=== PATIENT | female | born 1940 | race Hispanic/Latino ===

== ENCOUNTER 2017-06-30 22:36 | Observation (INO) | payer MEDICARE ==
--- NOTE | 2017-06-30 23:53 | ED PDOC ---
Syncope/Near Syncope/Dizziness Time Seen by Provider: 06/30/17 22:50 Chief Complaint (Nursing): Dizziness/Lightheaded Chief Complaint (Provider): Dizziness/Lightheaded History Per: Patient History/Exam Limitations: no limitations Additional Complaint(s): 76 y/o female present to the ED complaining of dizziness. Patient reports that she feels like room is spinning and loses her balance when she tries to walk. States that it started yesterday and is getting worse associated with abdominal discomfort and gas. Patient also reports chronic constipation and nasal congestion with clear discharge over the las couple of months. Denies fever, chest pain, generalized weakness or any further medical complaints. PMD: Asa Brugess MD Past Medical History Reviewed: Historical Data, Nursing Documentation, Vital Signs Vital Signs: Last Vital Signs Temp 98.4 F 06/30/17 22:38 Pulse 76 06/30/17 22:38 Resp 16 06/30/17 22:38 BP 183/92 H 06/30/17 22:38 Pulse Ox 98 06/30/17 22:38 - Medical History PMH: HTN, Hyperlipidemia - Surgical History Surgical History: Pacemaker - Family History Family History: States: Unknown Family Hx - Social History Current smoker - smoking cessation education provided: No Alcohol: None Drugs: Denies - Allergies Allergies/Adverse Reactions: Allergies Allergy/AdvReac Type Severity Reaction Status Date / Time iodine Allergy URTICARIA Verified 06/30/17 22:41 Review of Systems ROS Statement: Except As Marked, All Systems Reviewed And Found Negative (As per HPI, otherwise negative) Constitutional: Negative for: Fever, Weakness ENT: Positive for: Nose Congestion (with clear discharge) Cardiovascular: Negative for: Chest Pain Gastrointestinal: Positive for: Abdominal Pain (and gas), Constipation Neurological: Positive for: Dizziness - Laboratory Results Result Diagrams: 07/01/17 00:04 - ECG O2 Sat by Pulse Oximetry: 98 (RA) Pulse Ox Interpretation: Normal Medical Decision Making Medical Decision Making: Time: 23:03 Initial Impression: vertigo, abdominal pain, weakness Differential: hypertensive encephalopathy, eletrolyte abnormality, dyspepsia, gastritis, intracranial mass Plan: Type and screen Venous blood gas CT Head w/o contrast EKG BNP CMP Lipase Magnesium Phosphorous Troponin I Urine dipstick CBC w/ differential Partial thromboplastin Prothrombin time Chest x-ray Antivery 50mg pO Blood culture 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 Silva pending CT, labs and reevaluation. Scribe Attestation: Documented by Sherry Landrum acting as a scribe for Ana M Royal MD. Scribe Attestation: All medical record entries made by the Scribe were at my direction and personally dictated by me. I have reviewed the chart and agree that the record accurately reflects my personal performance of the history, physical exam, medical decision making, and the department course for this patient. I have also personally directed, reviewed, and agree with the discharge instructions and disposition. Disposition - Disposition Disposition: Transfer of Care Forms: [employer] (Syrian) Patient Signed Over To: Luis Silva (pending CT, labs, reevaluation)
[2017-07-01 00:07] LABS: BASO # 0.1 K/uL (0.0-0.2); EOS # 0.3 K/uL (0.0-0.7); EOS % 4.4 % (0.0-4.0); HEMOGLOBIN 13.3 g/dL (12.0-16.0); LYMPH # 2.2 K/uL (1.0-4.3); LYMPH % 29.9 % (20.0-40.0); MEAN CELL VOLUME 89.8 fl (81.0-99.0); MEAN CORPUSCULAR HEMOGLOBIN 31.3 pg (27.0-31.0); MEAN CORPUSCULAR HGB CONC 34.9 g/dL (33.0-37.0); MEAN PLATELET VOLUME 7.3 fl (7.2-11.7); MONO # 0.5 K/uL (0.0-0.8); MONO % 6.6 % (0.0-10.0); NEUT # 4.3 K/uL (1.8-7.0); NEUT % 58.1 % (50.0-75.0); NRBC % 0.1 % (0.0-0.0); RBC 4.25 Mil/uL (3.80-5.20); RED CELL DISTRIBUTION WIDTH 13.7 % (11.5-14.5); WHITE BLOOD COUNT 7.3 K/uL (4.8-10.8)
--- NOTE | 2017-07-01 00:10 | CT ---
EXAM: CT Head Without Intravenous Contrast EXAM DATE/TIME: 06/30/2017 11:08 PM CLINICAL HISTORY: 76 years old, female; Signs and symptoms; Dizziness; Additional info: Vertiginous dizziness TECHNIQUE: Axial computed tomography images of the head/brain without intravenous contrast. All CT scans at this facility use one or more dose reduction techniques, viz.: automated exposure control; ma/kV adjustment per patient size (including targeted exams where dose is matched to indication; i.e. head); or iterative reconstruction technique. Coronal and sagittal reformatted images were created and reviewed. COMPARISON: CT BRAIN W/O 2007-03-30 18:19 FINDINGS: Brain: There is prominence of sulci gyri and ventricles. There is no midline shift. There is decreased attenuation in periventricular white matter. There are no focal masses. There are no focal hemorrhages. Haley-white differentiation is visualized. Ventricles: See above. Bones: Cranial vault is intact. Soft tissues: unremarkable Sinuses: There is no acute sinusitis. Ears and mastoids: Middle ears and mastoids are unremarkable. Orbits: Orbital contents are unremarkable. IMPRESSION: No acute intracranial abnormality
[2017-07-01 00:12] LABS: VENOUS BLOOD GAS BASE EXCESS -6.5 mmol/L (0.0-2.0); VENOUS BLOOD GAS PCO2 61 mmHg (40-60); VENOUS BLOOD GAS PO2 85 mm/Hg (30-55); VENOUS BLOOD PH 7.18 (7.32-7.43)
[2017-07-01 00:25] LABS: ALB/GLOB RATIO 1.1 (1.0-2.1); ALBUMIN 4.1 g/dL (3.5-5.0); ALT/SGPT 34 U/L (9-52); AST/SGOT 27 U/L (14-36); B-TYPE NATRIURETIC PEPTIDE 137 pg/ml (0-900); BLOOD UREA NITROGEN 22 mg/dl (7-17); CALCIUM 8.8 mg/dL (8.4-10.2); GFR AFRICAN-AMERICAN > 60; GFR NON-AFRICAN AMERICAN > 60; LIPASE 93 U/L (23-300)
--- NOTE | 2017-07-01 00:25 | ED PDOC ---
- Laboratory Results Result Diagrams: 07/01/17 00:04 07/01/17 00:04 - ECG O2 Sat by Pulse Oximetry: 98 (RA) Medical Decision Making Medical Decision Making: Time: 00:00 Patient is signed over to me by Dr. Ana M Royal pending CT, labs and reevalaution. 1245 Pt. seen at bedside, states she's feeling better, dizziness has improved but feeling "tired". BP improving. Informed patient that she is Flu B positive, will give Tamiflu. Dr. Burgess aware. Will place patient in OBS for pre- syncope and dizziness. Scribe Attestation: Documented by Sherry Landrum acting as a scribe for Ana M Royal MD. Scribe Attestation: All medical record entries made by the Scribe were at my direction and personally dictated by me. I have reviewed the chart and agree that the record accurately reflects my personal performance of the history, physical exam, medical decision making, and the department course for this patient. I have also personally directed, reviewed, and agree with the discharge instructions and disposition. Disposition - Clinical Impression Clinical Impression: Dizziness, Pre-syncope - POA Present On Arrival: None - Disposition Disposition: Hospitalized as Observation Patient Disposition Time: 00:45 Condition: FAIR Forms: [employer] (Taiwanese)
[2017-07-01 00:28] LABS: PARTIAL THROMBOPLASTIN TIME 31.2 Seconds (25.6-37.1)
[2017-07-01] MEDS ORDERED: Pneumococcal 23-Valent Vaccine IM ONE (03:12)
[2017-07-01] MEDS ORDERED: Sodium Chloride 0.9% 1,000 ML IV SCH (06:45)
--- NOTE | 2017-07-01 07:57 | RAD ---
HISTORY: WEAKNESS COMPARISON: No prior. FINDINGS: LUNGS: No active pulmonary disease. PLEURA: No significant pleural effusion identified, no pneumothorax apparent. CARDIOVASCULAR: Normal. Pacemaker and leads in place. OSSEOUS STRUCTURES: No significant abnormalities. VISUALIZED UPPER ABDOMEN: Normal. OTHER FINDINGS: None. IMPRESSION: No active disease.
[2017-07-01 08:00] LABS: HDL CHOLESTEROL 28 MG/DL (30-70)
[2017-07-01 08:11] LABS: LDL CHOLESTEROL 166 mg/dL (0-129)
--- NOTE | 2017-07-01 11:07 | CARD ---
APPROVED REPORT EXAM: Two-dimensional and M-mode echocardiogram with Doppler and color Doppler. Other Information Quality : [employer] : Pacemaker INDICATION Syncope Surgery/Intervention Pacemaker: 2D DIMENSIONS IVSd1.26 (0.7-1.1cm)LVDd3.51 (3.9-5.9cm) LVOT Diameter1.95 (1.8-2.4cm)PWd0.86 (0.7-1.1cm) IVSs1.48 (0.8-1.2cm)LVDs1.74 (2.5-4.0cm) FS (%) 50.5 %PWs1.42 (0.8-1.2cm) M-Mode DIMENSIONS Left Atrium (MM)3.50 (2.5-4.0cm)IVSd0.94 (0.7-1.1cm) Aortic Root2.87 (2.2-3.7cm)LVDd4.22 (4.0-5.6cm) Aortic Cusp Exc.1.74 (1.5-2.0cm)PWd1.02 (0.7-1.1cm) IVSs1.65 cmFS (%) 58 % LVDs1.79 (2.0-3.8cm)PWs1.71 cm Mitral Valve MV E Wzepabvt10.8cm/sMV DECEL [id number] A Pjeevzen57.3cm/s MV NUO51oaS/A ratio0.8MVA (PHT)2.35cm2 TDI Lateral E' Peak V8.23cm/sMedial E' Peak V4.89cm/sE/Lateral E'8.8 E/Medial E'14.9 Pulmonary Valve PV Peak Vfpqibmr856.4cm/s Tricuspid Valve TR Peak Rszwbxmw456gd/sRAP [id number] Peak Gr.16mmHg [id number] LEFT VENTRICLE The left ventricle is normal size. There is normal left ventricular wall thickness. The left ventricular function is normal. The left ventricular ejection fraction is within the normal range. The Ejection Fraction is >70%. There is normal LV segmental wall motion. The left ventricular diastolic function is normal. RIGHT VENTRICLE The right ventricle is normal size. There is normal right ventricular wall thickness. The right ventricular systolic function is normal. ATRIA The left atrium size is normal. The right atrium size is normal. AORTIC VALVE The aortic valve is normal in structure. No aortic regurgitation is present. There is no aortic valvular stenosis. MITRAL VALVE The mitral valve is normal in structure. There is no mitral valve stenosis. There is no mitral valve regurgitation noted. TRICUSPID VALVE The tricuspid valve is normal in structure. There is no tricuspid valve regurgitation noted. There is no tricuspid valve stenosis. PULMONIC VALVE The pulmonary valve is normal in structure. There is no pulmonic valvular regurgitation. GREAT VESSELS The aortic root is normal in size. The IVC is normal in size and collapses >50% with inspiration. PERICARDIAL EFFUSION The pericardium appears normal. <Conclusion> The left ventricle is normal size. The left ventricular function is normal. The left ventricular ejection fraction is within the normal range. The Ejection Fraction is >70%.
--- NOTE | 2017-07-01 11:45 | US ---
PROCEDURE: Duplex ultrasound of the carotid and vertebral arteries. HISTORY: Syncope COMPARISON: 03/31/2007 TECHNIQUE: Grayscale and duplex Doppler evaluation of the cervical carotid and vertebral arteries were performed. The common carotid, carotid bifurcations and cervical ICA and proximal ECA were evaluated. The vertebral arteries were evaluated for gross patency and direction. FINDINGS: RIGHT CAROTID ARTERIES: Common Carotid Artery: Intimal thickening is present Maximal flow velocity of 69.7 cm/s. Carotid Bifurcation: Calcified plaque Internal Carotid Artery:Heterogeneous plaque formation. Tortuous right ICA particularly distally Maximal flow velocity of 55.4 cm/s. External Carotid Artery (proximal branches): Normal. Maximal flow velocity of 70.9 cm/s. ICA/CCA Ratio: 0.8 LEFT CAROTID ARTERIES: Common Carotid Artery: Intimal thickening is present Maximal flow velocity of 73.9 cm/s. Carotid Bifurcation: Intimal thickening is present Internal Carotid Artery:Heterogeneous plaque formation. Tortuous left ICA Maximal flow velocity of 118.6 cm/s. External Carotid Artery (proximal branches): Normal. Maximal flow velocity of 96.4 cm/s. ICA/CCA Ratio: 1.6 VERTEBRAL ARTERIES: Right Vertebral Artery: Patent. Antegrade flow. Left Vertebral Artery: Patent. Antegrade flow. OTHER FINDINGS: None. IMPRESSION: Right ICA degree of stenosis: Less than 50% Left ICA degree of stenosis: Less than 50% Reference Internal Carotid Artery (ICA) Peak Systolic Velocity (PSV) for above: 1. Less than 50% stenosis less than 125 cm/s peak systolic velocity 2. 50-69% stenosis 125-230cm/s peak systolic velocity 3. Greater than 70% but less than near occlusion greater than 230 cm/s peak systolic velocity
--- NOTE | 2017-07-01 12:22 | CARD ---
APPROVED REPORT EKG Measurement Heart [id number] <Conclusion> Supraventricular tachycardia with frequent ventricular-paced complexes and premature supraventricular complexes in a pattern Nonspecific T wave abnormality Abnormal ECG
[2017-07-01 14:01] LABS: FOLATE > 20.0 ng/mL
--- NOTE | 2017-07-01 15:44 | CP.PCM.HP ---
History of Present Illness - History of Present Illness History of Present Illness: 76 y/o female present with sevre dizziness. Patient c/o loses her balance when she tries to walk. States that it started yesterday and is getting worse associated with abdominal discomfort and gas. No v/n no abdominal pain. Present on Admission - Present on Admission Any Indicators Present on Admission: No Past Patient History - Past Medical History & Family History Past Medical History?: Yes - Past Social History Smoking Status: Never Smoked - CARDIAC Hx Cardiac Disorders: Yes Hx Hypercholesterolemia: Yes Hx Hypertension: Yes Hx Pacemaker: Yes - PULMONARY Hx Respiratory Disorders: No - NEUROLOGICAL Hx Neurological Disorder: No - HEENT Hx HEENT Problems: No - RENAL Hx Chronic Kidney Disease: No - ENDOCRINE/METABOLIC Hx Endocrine Disorders: Yes Hx Diabetes Mellitus Type 1: Yes - HEMATOLOGICAL/ONCOLOGICAL Hx Blood Disorders: No - INTEGUMENTARY Hx Dermatological Problems: No - MUSCULOSKELETAL/RHEUMATOLOGICAL Hx Musculoskeletal Disorders: No Hx Falls: No - GASTROINTESTINAL Hx Gastrointestinal Disorders: No - GENITOURINARY/GYNECOLOGICAL Hx Genitourinary Disorders: No - PSYCHIATRIC Hx Psychophysiologic Disorder: No Hx Substance Use: No - SURGICAL HISTORY Hx Surgeries: Yes Hx Orthopedic Surgery: Yes (left foot surgery with titanium) - ANESTHESIA Hx Anesthesia: Yes Hx Anesthesia Reactions: No Hx Malignant Hyperthermia: No Has any member of the family had a problem w/ anesthesia?: No Meds Allergies/Adverse Reactions: Allergies Allergy/AdvReac Type Severity Reaction Status Date / Time iodine Allergy URTICARIA Verified 06/30/17 22:41 Physical Exam - Constitutional Appears: Chronically Ill - Head Exam Head Exam: ATRAUMATIC, NORMAL INSPECTION, NORMOCEPHALIC - Eye Exam Eye Exam: Normal appearance - ENT Exam ENT Exam: Mucous Membranes Moist - Respiratory Exam Respiratory Exam: Clear to Auscultation Bilateral - Cardiovascular Exam Cardiovascular Exam: Tachycardia, REGULAR RHYTHM, +S1, +S2 - GI/Abdominal Exam GI & Abdominal Exam: Normal Bowel Sounds - Extremities Exam Extremities exam: Positive for: normal inspection - Neurological Exam Neurological exam: Alert, Altered, CN II-XII Intact, Oriented x3 - Psychiatric Exam Psychiatric exam: Anxious Results - Vital Signs Recent Vital Signs: Last Vital Signs Temp 98.4 F 07/01/17 12:27 Pulse 70 07/01/17 12:27 Resp 20 07/01/17 12:27 BP 113/76 03/10/18 12:27 Pulse Ox 95 07/01/17 12:27 - Labs Result Diagrams: 07/01/17 00:04 07/01/17 00:04 Labs: Laboratory Results - last 24 hr 06/30/17 06/30/17 06/30/17 00:00 23:03 23:50 WBC RBC Hgb Hct MCV MCH MCHC RDW Plt Count MPV Neut % (Auto) Lymph % (Auto) [place] % (Auto) Eos % (Auto) Baso % (Auto) Neut # (Auto) Lymph # (Auto) [place] # (Auto) Eos # (Auto) Baso # (Auto) PT INR APTT pO2 85 H VBG pH 7.18 L* VBG pCO2 61 H VBG HCO3 19.8 VBG Total CO2 24.7 VBG O2 Sat (Calc) 97.4 H VBG Base Excess -6.5 L VBG Potassium > 20.0 H* Sodium 124.0 L Chloride 101.0 Glucose 188 H Lactate 2.0 FiO2 21.0 Crit Value Called To Lele downs md Crit Value Called By [facility] Crit Value Read Back Y Blood Gas Notified Time 10 Potassium Carbon Dioxide Anion Gap BUN Creatinine Est GFR ( Amer) Est GFR (Non-Af Amer) POC Glucose (mg/dL) 154 H Random Glucose Calcium Phosphorus Magnesium Total Bilirubin AST ALT Alkaline Phosphatase Troponin I NT-Pro-B Natriuret Pep Total Protein Albumin Globulin Albumin/Globulin Ratio Triglycerides Cholesterol LDL Cholesterol Direct HDL Cholesterol Lipase Vitamin B12 Folate TSH 3rd Generation Venous Blood Potassium > 20.0 H* Influenza Typ A,B (EIA) Blood Type A POSITIVE Blood Type Confirm Antibody Screen Negative BBK History Checked No verified bt 07/01/17 07/01/17 07/01/17 00:04 00:04 00:04 WBC 7.3 RBC 4.25 Hgb 13.3 Hct 38.1 MCV 89.8 MCH 31.3 H MCHC 34.9 RDW 13.7 Plt Count 225 MPV 7.3 Neut % (Auto) 58.1 Lymph % (Auto) 29.9 Lincoln % (Auto) 6.6 Eos % (Auto) 4.4 H Baso % (Auto) 1.0 Neut # (Auto) 4.3 Lymph # (Auto) 2.2 Lincoln # (Auto) 0.5 Eos # (Auto) 0.3 Baso # (Auto) 0.1 PT 11.0 INR 1.0 APTT 31.2 pO2 VBG pH VBG pCO2 VBG HCO3 VBG Total CO2 VBG O2 Sat (Calc) VBG Base Excess VBG Potassium Sodium 138 Chloride 101 Glucose Lactate FiO2 Crit Value Called To Crit Value Called By Crit Value Read Back Blood Gas Notified Time Potassium 3.9 Carbon Dioxide 24 Anion Gap 17 BUN 22 H Creatinine 0.6 L Est GFR ( Amer) > 60 Est GFR (Non-Af Amer) > 60 POC Glucose (mg/dL) Random Glucose 180 H Calcium 8.8 Phosphorus 3.2 Magnesium 2.0 Total Bilirubin 0.3 AST 27 ALT 34 Alkaline Phosphatase 85 Troponin I < 0.0120 NT-Pro-B Natriuret Pep 137 Total Protein 7.7 Albumin 4.1 Globulin 3.6 Albumin/Globulin Ratio 1.1 Triglycerides Cholesterol LDL Cholesterol Direct HDL Cholesterol Lipase 93 Vitamin B12 Folate TSH 3rd Generation Venous Blood Potassium Influenza Typ A,B (EIA) Blood Type Blood Type Confirm Antibody Screen BBK History Checked 07/01/17 07/01/17 07/01/17 00:04 00:13 07:15 WBC RBC Hgb Hct MCV MCH MCHC RDW Plt Count MPV Neut % (Auto) Lymph % (Auto) Lincoln % (Auto) Eos % (Auto) Baso % (Auto) Neut # (Auto) Lymph # (Auto) [place] # (Auto) Eos # (Auto) Baso # (Auto) PT INR APTT pO2 VBG pH VBG pCO2 VBG HCO3 VBG Total CO2 VBG O2 Sat (Calc) VBG Base Excess VBG Potassium Sodium Chloride Glucose Lactate FiO2 Crit Value Called To Crit Value Called By Crit Value Read Back Blood Gas Notified Time Potassium Carbon Dioxide Anion Gap BUN Creatinine Est GFR ( Amer) Est GFR (Non-Af Amer) POC Glucose (mg/dL) Random Glucose Calcium Phosphorus Magnesium Total Bilirubin AST ALT Alkaline Phosphatase Troponin I NT-Pro-B Natriuret Pep Total Protein Albumin Globulin Albumin/Globulin Ratio Triglycerides Cholesterol LDL Cholesterol Direct HDL Cholesterol Lipase Vitamin B12 Folate TSH 3rd Generation 3.11 Venous Blood Potassium Influenza Typ A,B (EIA) Pos for influenza b H Blood Type Blood Type Confirm A POSITIVE Antibody Screen BBK History Checked 07/01/17 07:15 WBC RBC Hgb Hct MCV MCH MCHC RDW Plt Count MPV Neut % (Auto) Lymph % (Auto) Lincoln % (Auto) Eos % (Auto) Baso % (Auto) Neut # (Auto) Lymph # (Auto) [place] # (Auto) Eos # (Auto) Baso # (Auto) PT INR APTT pO2 VBG pH VBG pCO2 VBG HCO3 VBG Total CO2 VBG O2 Sat (Calc) VBG Base Excess VBG Potassium Sodium Chloride Glucose Lactate FiO2 Crit Value Called To Crit Value Called By Crit Value Read Back Blood Gas Notified Time Potassium Carbon Dioxide Anion Gap BUN Creatinine Est GFR ( Amer) Est GFR (Non-Af Amer) POC Glucose (mg/dL) Random Glucose Calcium Phosphorus Magnesium Total Bilirubin AST ALT Alkaline Phosphatase Troponin I < 0.0120 NT-Pro-B Natriuret Pep Total Protein Albumin Globulin Albumin/Globulin Ratio Triglycerides 157 H Cholesterol 231 H LDL Cholesterol Direct 166 H HDL Cholesterol 28 L Lipase Vitamin B12 435 Folate > 20.0 TSH 3rd Generation Venous Blood Potassium Influenza Typ A,B (EIA) Blood Type Blood Type Confirm Antibody Screen BBK History Checked Assessment & Plan (1) Influenza Status: Acute (2) Tachyarrhythmia Status: Acute (3) Dizziness Status: Acute (4) Pre-syncope Status: Acute (5) Hypertensive cardiovascular disease Status: Chronic (6) Hypertensive cardiovascular disease Status: Chronic (7) Diabetes Status: Chronic (8) Diabetes 1.5, managed as type 2 Status: Chronic (9) Depression Status: Acute - Assessment and Plan (Free Text) Plan: Continue present rx.
[2017-07-02 12:52] VITALS: BP 138/62; PULSE 70; RESP 18; TEMP 98.1; O2SAT 96
--- NOTE | 2017-07-02 15:27 | CP.PCM.PN ---
Subjective - Date & Time of Evaluation Date of Evaluation: 07/02/17 Time of Evaluation: 15:27 - Subjective Subjective: Patient comfortable no c/o Objective - Vital Signs/Intake and Output Vital Signs (last 24 hours): Temp Pulse Resp BP Pulse Ox 98.1 F 70 18 138/62 96 07/02/17 12:00 07/02/17 12:00 07/02/17 12:00 07/02/17 12:00 07/02/17 12:00 - Medications Medications: Current Medications Aspirin (Ecotrin) 81 mg PO DAILY [facility] Last Admin: 07/02/17 09:38 Dose: 81 mg Atorvastatin Calcium (Lipitor) 10 mg PO DAILY [facility] Carvedilol (Coreg) 6.25 mg PO BID [facility] Last Admin: 07/02/17 09:44 Dose: 6.25 mg Docusate Sodium (Colace) 100 mg PO BID [facility] Last Admin: 07/02/17 09:37 Dose: 100 mg Famotidine (Pepcid) 10 mg PO DAILY [facility] Last Admin: 07/02/17 09:39 Dose: 10 mg [facility] (Glucophage) [facility] [place] Admin: 07/02/17 09:37 Dose: 500 mg Oseltamivir Phosphate (Tamiflu Cap) 75 mg PO BID [facility] PRN Reason: Protocol Last Admin: 07/02/17 09:39 Dose: 75 mg Paroxetine HCl (Paxil) 20 mg PO DAILY [facility] Last Admin: 07/02/17 09:37 Dose: 20 mg - Labs Labs: 07/01/17 00:04 07/01/17 00:04 PT 11.0 Seconds (9.8-13.1) 07/01/17 00:04 INR 1.0 (0.9-1.2) 07/01/17 00:04 APTT 31.2 Seconds (25.6-37.1) 07/01/17 00:04 - Constitutional Appears: Well - Head Exam Head Exam: ATRAUMATIC, NORMAL INSPECTION, NORMOCEPHALIC - Eye Exam Eye Exam: Normal appearance - ENT Exam ENT Exam: Mucous Membranes Moist - Neck Exam Neck Exam: Full ROM - Respiratory Exam Respiratory Exam: Clear to Ausculation Bilateral - Cardiovascular Exam Cardiovascular Exam: REGULAR RHYTHM, +S1, +S2 - GI/Abdominal Exam GI & Abdominal Exam: Soft, Normal Bowel Sounds - Extremities Exam Extremities Exam: Full ROM - Neurological Exam Neurological Exam: Alert, Awake, CN II-XII Intact, Normal Gait, Oriented x3 - Psychiatric Exam Psychiatric exam: Normal Affect - Skin Skin Exam: Normal Color Assessment and Plan (1) Influenza Status: Acute (2) Tachyarrhythmia Status: Resolved (3) Dizziness Status: Resolved (4) Pre-syncope Status: Resolved (5) Hypertensive cardiovascular disease Status: Chronic (6) Hypertensive cardiovascular disease Status: Chronic (7) Diabetes Status: Chronic (8) Diabetes 1.5, managed as type 2 Status: Chronic (9) Depression Status: Acute - Assessment and Plan (Free Text) Plan: DC home f/u as OP
--- NOTE | 2017-07-03 08:33 | CON ---
DATE: 07/01/2017 NEUROLOGY CONSULTATION CHIEF COMPLAINT: Presyncope. HISTORY OF PRESENT ILLNESS: This is a 76-year-old woman with a history of hypertension and hyperlipidemia, who came into the clinic with dizziness, was slightly mildly hypertensive when she came in was 183/92, reports like the room was spinning and was when she was trying to walk. This started yesterday and was getting worse. Along she had some nasal congestion as well. CAT scan of the head showed no acute intracranial abnormality, just some chronic ischemic changes. She is positive for flu for influenza B and was mildly dehydrated as well. She has elevated cholesterol and LDL as well. At this time, she is moving all extremities. No pronator drift seen. No longer any headaches or any spinning sensation of the room. PAST MEDICAL HISTORY: Hypertension, coronary artery disease, and dyslipidemia. ALLERGIES: IODINE. SOCIAL HISTORY: No illicit drug use, smoking or EtOH abuse. FAMILY HISTORY: Noncontributory. MEDICATIONS: Reviewed by nurse reconciliation sheet. REVIEW OF SYSTEMS: A 14-point review of systems is negative except in the HPI. PHYSICAL EXAMINATION: VITAL SIGNS: Temperature 98.4, pulse rate 70, blood pressure 130/76, respiratory rate 20, oxygen saturations 95% on room air. GENERAL: The patient is sitting up in bed in no acute distress. HEENT: Head is atraumatic, normocephalic. PERRLA. Extraocular muscles intact. NECK: Supple. No JVD. No adenopathy noted. LUNGS: Clear to auscultation. No adventitious sounds. HEART: S1 and S2. Normal rate and rhythm. No murmurs, rubs or gallops. ABDOMEN: Soft, nontender, and nondistended. Bowel sounds are present. EXTREMITIES: No clubbing. No cyanosis. Peripheral pulses are 2+ felt bilaterally. NEUROLOGIC: The patient is alert and oriented to person, place, month, and year. Speech is fluent without errors. Cranial nerves II through XII are intact. Motor exam: Moves all extremities equally. Sensory exam: Light touch, pinprick, proprioception, and vibration are intact. DTRs are 2+ throughout. Coordination: [id number]-[id number] intact. Gait is deferred for now. LABORATORY DATA: Sodium 138, potassium 3.9, chloride 101, carbon dioxide 24, BUN 22, creatinine , and random glucose 188. Cholesterol 231 and LDL 166. ASSESSMENT: This is a 76-year-old woman with past medical history of dyslipidemia and hypertension, who was dizzy in terms of lightheadedness with mild spinning sensation of the room, found to be hypertensive in terms of elevated blood pressure in the and was mildly dehydrated with positive influenza B. At this time, her symptoms of dizziness are secondary to mild hypertensive urgency, superimposed underlying influenza positive B, therefore, she had nasal congestion. Her carotid Doppler showed no significant hemodynamic stenosis. CAT scan of the head showed no acute intracranial abnormality. Neuro exam is nonfocal at this point. She has elevated LDL and cholesterol. RECOMMENDATIONS: 1. At this time, we will recommend aspirin 81 mg and Lipitor 40 mg p.o. daily for stroke prevention. 2. Keep her blood between 140s to 180s. 3. Adequate hydration throughout the day. 4. Orthostatic vital signs and continue current present medical management, PT and OT evaluation. Thank you for this consult. No further neurological workup needed at that time. Sean Jesus MD
== END 2017-07-02 15:50 | disposition home or self-care (01) ==
LOC: H.ER 22:36 → EDBD 22:36 → H.ERHOLD 07-01 00:30 → H.TEL 07-01 02:48
PROVIDERS: ADMIT Internal Medicine; ATTEND Internal Medicine
DX: J11.1 Influenza due to unidentified influenza virus with other respiratory manifestations (principal); R55 Syncope and collapse; K59.09 Other constipation; E10.9 Type 1 diabetes mellitus without complications; E78.00 Pure hypercholesterolemia, unspecified; E78.5 Hyperlipidemia, unspecified; F32.9 Major depressive disorder, single episode, unspecified; I11.9 Hypertensive heart disease without heart failure; Z79.4 Long term (current) use of insulin; Z95.0 Presence of cardiac pacemaker; R00.0 Tachycardia, unspecified; Z23 Encounter for immunization
CPT/HCPCS: 70450; 71045; 80053; 80061; 82607; 82746; 82803; 82948; 83036; 83690; 83735; 83880; 84100; 84443; 84484; 85025; 85610; 85730; 86850; 86900; 87040; 87086; 87804; 90732; 93005; 93306; 93880; 99285; G0009; G0378; J7040